=== PATIENT | male | born 1970 | race Caucasian/White ===

== ENCOUNTER 2020-02-28 08:49 | Inpatient (IN) | payer MEDICAID, OTHER ==
[~2020-02-28] VITALS: Ht 182.9 cm; Wt 220.0 kg
[~2020-02-28 08:49] MED LIST: AZIT250T PO; CYCL-1 PO; MYCOL30CR TP
[2020-02-28] MEDS ORDERED: normal saline 1000ML IV soln IV ONE (09:10)
[2020-02-28 09:50] LABS: EOSINOPHILS % (AUTO) 0 % (0-6)
[2020-02-28 09:51] LABS: BASOPHILS % (AUTO) 0.2 % (0-1); LYMPHOCYTES # (AUTO) 1.1 X10'3 (1.1-4.8); LYMPHOCYTES % (AUTO) 6.5 % (21-51); MEAN CORPUSCULAR HEMOGLOBIN 31.2 PG (27.0-31.0); MEAN CORPUSCULAR HGB CONC 34.1 g/dL (33.0-36.5); MEAN CORPUSCULAR VOLUME 91.4 FL (78-98); MEAN PLATELET VOLUME 8.9 FL (7.4-10.4); MONOCYTES # (AUTO) 1.5 X10'3 (0-0.9); MONOCYTES % (AUTO) 9.2 % (2-12); NEUTROPHILS # (AUTO) 13.9 X10'3 (1.8-7.7); NEUTROPHILS % (AUTO) 84.1 % (42-75); PLATELET COUNT 228 X10'3 (140-440); RED BLOOD COUNT 5.14 X10'6 (4.70-6.10); RED CELL DISTRIBUTION WIDTH 13.5 % (11.5-14.5); WHITE BLOOD COUNT 16.5 X10'3 (4.5-11.0)
[2020-02-28 09:52] LABS: PARTIAL THROMBOPLASTIN TIME 32 SECONDS (22-32)
[2020-02-28 09:54] LABS: CLARITY,URINE CLEAR (Clear); COLOR,URINE YELLOW (Yellow); GLUCOSE, URINE NEGATIVE (Neg); KETONES,URINE NEGATIVE (Neg); LEUKOCYTE ESTERASE ,URINE NEGATIVE (Neg); NITRITES, URINE NEGATIVE (Neg); OCCULT BLOOD,URINE TRACE-LYSED (Neg); PROTEIN,URINE 30 mg/dl (Neg)
[2020-02-28 10:00] LABS: UA COLLECTION TYPE CLN CATCH MIDSTREAM
[2020-02-28 10:02] LABS: BACTERIA,URINE NONE SEEN /HPF (Neg); MUCUS STRANDS FEW /LPF (Neg); RBC,URINE 0-2 /HPF (0-2); SQUAMOUS EPITHELIAL CELL,UR NONE SEEN /LPF (FEW); WBC,URINE 0-4 /HPF (0-4)
[2020-02-28 10:07] LABS: ALANINE AMINOTRANSFERASE 69 U/L (12-78); ALBUMIN 3.4 G/DL (3.4-5.0); ALBUMIN/GLOBULIN RATIO 0.7 (1.1-1.5); ALKALINE PHOSPHATASE 117 IU/L (46-116); ANION GAP 8 (8-16); ASPARTATE AMINO TRANSFERASE 64 U/L (10-37); BLOOD UREA NITROGEN 9 MG/DL (7-18); BUN/CREATININE RATIO 6.7 (5.4-32.0); CALCIUM 9.4 MG/DL (8.5-10.1); CHLORIDE 96 MMOL/L (99-107); CREATININE 1.35 MG/DL (0.60-1.10); GLUCOSE 145 MG/DL (70-104); MAGNESIUM 1.8 MG/DL (1.5-2.4); POTASSIUM 3.9 MMOL/L (3.5-5.1); SODIUM 132 MMOL/L (135-145); TOTAL CARBON DIOXIDE 28.5 MMOL/L (24-32); eGFR 56 ML/MIN
--- NOTE | 2020-02-28 10:12 | NUR ---
Lactic result still pending.
[2020-02-28] MEDS ORDERED: vancomycin/NS 1 GM ADD-VANTAGE 250 ML IV ONE (10:30)
[2020-02-28] MEDS ORDERED: CefTRIAXone/D5W-Rocephin 1gm 50 ML IV ONE (10:30)
[2020-02-28] MEDS ORDERED: magnesium hydroxide 30ml (MOM) UD suspension PO PRN (10:50)
[2020-02-28] MEDS ORDERED: acetaminophen 325mg tablet PO PRN ×2 (10:50)
[2020-02-28] MEDS ORDERED: ondansetron/PF 4mg/2ml inj IV PRN (10:50)
[2020-02-28] MEDS ORDERED: HYDROcodone/acetaminophen 5mg/325mg tablet PO PRN (10:50)
[2020-02-28] MEDS ORDERED: magnesium 2GM in 50ml NS 50 ML IV PRN (10:50)
[2020-02-28] MEDS ORDERED: mag hydrox/Alum hydrox/simeth 30ml oral suspension PO PRN (10:50)
[2020-02-28] MEDS ORDERED: potassium Cl 20 mEq SR tablet PO PRN (10:50)
[2020-02-28] MEDS ORDERED: magnesium 4gm in 100ml NS 100 ML IV PRN (10:50)
[2020-02-28] MEDS ORDERED: potassium CL 10mEq/100ml bag 100 ML IV PRN ×2 (10:50)
[2020-02-28] MEDS ORDERED: nicotine 14mg patch - 24hr TD ONE (11:20)
[2020-02-28] MEDS ORDERED: NO HOME MEDS (11:24)
[2020-02-28] MEDS: normal saline 1000ml 1,000 ML IV SCH ×2 (12:21→20:46)
--- NOTE | 2020-02-28 13:45 | NUR ---
Patient in room [facility]. I have received report from Mc KOO and had the opportunity to ask questions and assume patient care.
[2020-02-28 14:08] VITALS: BP 139/73
--- NOTE | 2020-02-28 18:10 | NUR ---
Problems reprioritized. Patient report given, questions answered & plan of care reviewed with Miguelina KOO.
[2020-02-28 18:15] VITALS: BP 144/88
--- NOTE | 2020-02-28 18:25 | NUR ---
Patient in room [facility]. I have received report from HAYES Pop and had the opportunity to ask questions and assume patient care.
[2020-02-28] MEDS: K and/or MAG REPLACEMENT MC SCH (18:37)
[2020-02-28] MEDS: HYDROcodone/acetaminophen 10/325mg tab PO PRN (19:35)
[2020-02-28] MEDS: VANCOmycin 1250MG/NS 250ml Bag 250 ML IV SCH (22:08)
[2020-02-29] VITALS: BP 137/90
[2020-02-29] MEDS: HYDROcodone/acetaminophen 10/325mg tab PO PRN ×2 (04:37→09:13)
[2020-02-29 04:55] LABS: BASOPHILS % (AUTO) 0.2 % (0-1); EOSINOPHILS % (AUTO) 0.2 % (0-6); HEMATOCRIT 42.2 % (42.0-52.0); HEMOGLOBIN 13.9 g/dl (14.0-17.9); LYMPHOCYTES # (AUTO) 1.2 X10'3 (1.1-4.8); LYMPHOCYTES % (AUTO) 9.8 % (21-51); MEAN CORPUSCULAR HEMOGLOBIN 30.5 PG (27.0-31.0); MEAN CORPUSCULAR VOLUME 92.3 FL (78-98); MEAN PLATELET VOLUME 8.5 FL (7.4-10.4); MONOCYTES % (AUTO) 8.6 % (2-12); NEUTROPHILS # (AUTO) 9.8 X10'3 (1.8-7.7); NEUTROPHILS % (AUTO) 81.2 % (42-75); PLATELET COUNT 164 X10'3 (140-440); RED BLOOD COUNT 4.57 X10'6 (4.70-6.10); RED CELL DISTRIBUTION WIDTH 13.4 % (11.5-14.5); WHITE BLOOD COUNT 12.1 X10'3 (4.5-11.0)
[2020-02-29 05:09] LABS: ALANINE AMINOTRANSFERASE 49 U/L (12-78); ALBUMIN 2.6 G/DL (3.4-5.0); ALBUMIN/GLOBULIN RATIO 0.6 (1.1-1.5); ALKALINE PHOSPHATASE 102 IU/L (46-116); ANION GAP 9 (8-16); ASPARTATE AMINO TRANSFERASE 34 U/L (10-37); BILIRUBIN,TOTAL 0.5 MG/DL (0.1-1.0); BLOOD UREA NITROGEN 6 MG/DL (7-18); BUN/CREATININE RATIO 5.7 (5.4-32.0); CALCIUM 8.1 MG/DL (8.5-10.1); CHLORIDE 101 MMOL/L (99-107); CREATININE 1.06 MG/DL (0.60-1.10); GLUCOSE 105 MG/DL (70-104); MAGNESIUM 1.7 MG/DL (1.5-2.4); POTASSIUM 3.4 MMOL/L (3.5-5.1); SODIUM 134 MMOL/L (135-145); TOTAL CARBON DIOXIDE 24.5 MMOL/L (24-32); TOTAL PROTEIN 6.7 G/DL (6.4-8.2); eGFR 74 ML/MIN
--- NOTE | 2020-02-29 06:15 | NUR ---
Problems reprioritized. Patient report given, questions answered & plan of care reviewed with HAYES De La Torre.
[2020-02-29] MEDS: normal saline 1000ml 1,000 ML IV SCH ×3 (06:46→20:10)
[2020-02-29] MEDS: CefTRIAXone/D5W-Rocephin 1gm 50 ML IV SCH (07:17)
[2020-02-29] MEDS: enoxaparin 40mg/0.4ml syringe SQ SCH (07:17)
[2020-02-29] MEDS: potassium Cl 20 mEq SR tablet PO PRN ×3 (07:17→17:39)
[2020-02-29] MEDS: K and/or MAG REPLACEMENT MC SCH ×2 (07:20→18:43)
[2020-02-29 07:37] VITALS: BP 138/92
[2020-02-29] MEDS: VANCOmycin 1250MG/NS 250ml Bag 250 ML IV SCH ×2 (11:51→22:01)
[2020-02-29] MEDS: nicotine 14mg patch - 24hr TD SCH (12:56)
[2020-02-29 13:37] VITALS: BP 122/89
[2020-02-29 18:00] VITALS: BP 152/98
--- NOTE | 2020-02-29 18:15 | NUR ---
Problems reprioritized. Patient report given, questions answered & plan of care reviewed with DARRON KOO.
--- NOTE | 2020-02-29 18:41 | NUR ---
Patient in room [facility]. I have received report from HAYES De La Torre and had the opportunity to ask questions and assume patient care.
[2020-02-29] MEDS: oxyCODONE IR 5mg (immed. release) tablet PO PRN (20:07)
[2020-03-01 00:08] VITALS: BP 131/76
[2020-03-01] MEDS: oxyCODONE IR 5mg (immed. release) tablet PO PRN ×5 (03:39→22:50)
[2020-03-01 03:49] VITALS: BP 124/76
[2020-03-01 05:24] LABS: BASOPHILS % (AUTO) 0.2 % (0-1); EOSINOPHILS # (AUTO) 0.1 X10'3 (0-0.9); EOSINOPHILS % (AUTO) 0.7 % (0-6); HEMATOCRIT 37.3 % (42.0-52.0); HEMOGLOBIN 12.6 g/dl (14.0-17.9); LYMPHOCYTES # (AUTO) 1.4 X10'3 (1.1-4.8); LYMPHOCYTES % (AUTO) 15.9 % (21-51); MEAN CORPUSCULAR HGB CONC 33.9 g/dL (33.0-36.5); MEAN CORPUSCULAR VOLUME 91.4 FL (78-98); MEAN PLATELET VOLUME 8.7 FL (7.4-10.4); MONOCYTES # (AUTO) 1.1 X10'3 (0-0.9); MONOCYTES % (AUTO) 12.2 % (2-12); NEUTROPHILS # (AUTO) 6.4 X10'3 (1.8-7.7); PLATELET COUNT 204 X10'3 (140-440); RED BLOOD COUNT 4.08 X10'6 (4.70-6.10); RED CELL DISTRIBUTION WIDTH 13.4 % (11.5-14.5)
[2020-03-01 05:42] LABS: ALANINE AMINOTRANSFERASE 40 U/L (12-78); ALBUMIN 2.3 G/DL (3.4-5.0); ALBUMIN/GLOBULIN RATIO 0.6 (1.1-1.5); ALKALINE PHOSPHATASE 112 IU/L (46-116); ANION GAP 8 (8-16); ASPARTATE AMINO TRANSFERASE 25 U/L (10-37); BILIRUBIN,TOTAL 0.3 MG/DL (0.1-1.0); BLOOD UREA NITROGEN 5 MG/DL (7-18); BUN/CREATININE RATIO 4.3 (5.4-32.0); CALCIUM 8.6 MG/DL (8.5-10.1); CHLORIDE 102 MMOL/L (99-107); CREATININE 1.16 MG/DL (0.60-1.10); GLUCOSE 151 MG/DL (70-104); MAGNESIUM 1.8 MG/DL (1.5-2.4); POTASSIUM 3.4 MMOL/L (3.5-5.1); SODIUM 135 MMOL/L (135-145); TOTAL CARBON DIOXIDE 25.4 MMOL/L (24-32); TOTAL PROTEIN 6.3 G/DL (6.4-8.2); eGFR 67 ML/MIN
[2020-03-01] MEDS: normal saline 1000ml 1,000 ML IV SCH ×2 (06:07→21:19)
--- NOTE | 2020-03-01 06:35 | NUR ---
Patient in room [facility]. I have received report from HAYES ROB and had the opportunity to ask questions and assume patient care.
--- NOTE | 2020-03-01 06:45 | NUR ---
Problems reprioritized. Patient report given, questions answered & plan of care reviewed with HAYES Johnson.
[2020-03-01 07:00] VITALS: BP 136/71
[2020-03-01] MEDS: CefTRIAXone/D5W-Rocephin 1gm 50 ML IV SCH (07:17)
[2020-03-01] MEDS: nicotine 14mg patch - 24hr TD SCH (07:18)
[2020-03-01] MEDS: enoxaparin 40mg/0.4ml syringe SQ SCH (07:19)
[2020-03-01] MEDS: potassium Cl 20 mEq SR tablet PO PRN ×3 (07:20→19:01)
[2020-03-01] MEDS: K and/or MAG REPLACEMENT MC SCH ×2 (08:00→19:01)
[2020-03-01] MEDS ORDERED: VANCOMYCIN LEVEL IV ONE (10:30)
[2020-03-01 11:00] VITALS: BP 117/74
[2020-03-01] MEDS: VANCOmycin 1250MG/NS 250ml Bag 250 ML IV SCH ×2 (11:06→19:01)
--- NOTE | 2020-03-01 18:18 | NUR ---
Patient in room [facility]. I have received report from Elizabeth KOO and had the opportunity to ask questions and assume patient care.
[2020-03-01 18:30] VITALS: BP 158/90
--- NOTE | 2020-03-01 18:53 | NUR ---
Problems reprioritized. Patient report given, questions answered & plan of care reviewed with HAYES Cespedes.
--- NOTE | 2020-03-01 22:45 | NUR ---
Attempt #2 at offering the NG. Explained benefits of it and patient is still refusing at this time. Addendum: 03/02/20 at 0003 by Maddison Voss RN Wrong chart.
[2020-03-02] VITALS: BP 118/73
[2020-03-02] MEDS: VANCOmycin 1250MG/NS 250ml Bag 250 ML IV SCH (02:35)
--- NOTE | 2020-03-02 06:19 | NUR ---
Problems reprioritized. Patient report given, questions answered & plan of care reviewed with Elizabeth KOO.
--- NOTE | 2020-03-02 06:20 | NUR ---
Patient in room [facility]. I have received report from HAYES Huntley and had the opportunity to ask questions and assume patient care.
[2020-03-02 06:26] LABS: BASOPHILS % (AUTO) 0.6 % (0-1); EOSINOPHILS # (AUTO) 0.1 X10'3 (0-0.9); EOSINOPHILS % (AUTO) 1.8 % (0-6); HEMATOCRIT 39.1 % (42.0-52.0); HEMOGLOBIN 13.4 g/dl (14.0-17.9); LYMPHOCYTES # (AUTO) 1.7 X10'3 (1.1-4.8); LYMPHOCYTES % (AUTO) 21.5 % (21-51); MEAN CORPUSCULAR HEMOGLOBIN 31.3 PG (27.0-31.0); MEAN CORPUSCULAR HGB CONC 34.4 g/dL (33.0-36.5); MEAN PLATELET VOLUME 8.3 FL (7.4-10.4); MONOCYTES # (AUTO) 0.9 X10'3 (0-0.9); MONOCYTES % (AUTO) 11.5 % (2-12); NEUTROPHILS # (AUTO) 5.2 X10'3 (1.8-7.7); NEUTROPHILS % (AUTO) 64.6 % (42-75); PLATELET COUNT 231 X10'3 (140-440); RED CELL DISTRIBUTION WIDTH 13.6 % (11.5-14.5); WHITE BLOOD COUNT 8.1 X10'3 (4.5-11.0)
[2020-03-02 06:58] LABS: ALANINE AMINOTRANSFERASE 43 U/L (12-78); ALBUMIN 2.5 G/DL (3.4-5.0); ALBUMIN/GLOBULIN RATIO 0.6 (1.1-1.5); ALKALINE PHOSPHATASE 139 IU/L (46-116); ANION GAP 9 (8-16); ASPARTATE AMINO TRANSFERASE 30 U/L (10-37); BILIRUBIN,TOTAL 0.4 MG/DL (0.1-1.0); BLOOD UREA NITROGEN 7 MG/DL (7-18); BUN/CREATININE RATIO 6.4 (5.4-32.0); CALCIUM 8.7 MG/DL (8.5-10.1); CHLORIDE 101 MMOL/L (99-107); GLUCOSE 155 MG/DL (70-104); MAGNESIUM 2.1 MG/DL (1.5-2.4); POTASSIUM 3.8 MMOL/L (3.5-5.1); SODIUM 134 MMOL/L (135-145); TOTAL CARBON DIOXIDE 24.5 MMOL/L (24-32); TOTAL PROTEIN 6.9 G/DL (6.4-8.2); eGFR 71 ML/MIN
[2020-03-02 07:00] VITALS: BP 143/98
[2020-03-02] MEDS: enoxaparin 40mg/0.4ml syringe SQ SCH (07:20)
[2020-03-02] MEDS: nicotine 14mg patch - 24hr TD SCH (07:20)
[2020-03-02] MEDS: CefTRIAXone/D5W-Rocephin 1gm 50 ML IV SCH (07:21)
[2020-03-02] MEDS: K and/or MAG REPLACEMENT MC SCH ×2 (07:23→20:00)
[2020-03-02] MEDS: oxyCODONE IR 5mg (immed. release) tablet PO PRN ×3 (07:25→20:01)
[2020-03-02] MEDS: normal saline 1000ml 1,000 ML IV SCH ×3 (08:46→20:06)
[2020-03-02] MEDS ORDERED: VANCOMYCIN LEVEL IV ONE (10:30)
[2020-03-02] MEDS ORDERED: VANCOMYCIN 1,500MG inj. 1,500 MG in normal saline 500ml IV soln 500 ML IV SCH (12:10)
[2020-03-02 12:31] VITALS: BP 123/83
[2020-03-02] MEDS: clindamycin 600mg/D5W 50ml 50 ML IV SCH ×2 (14:43→20:02)
--- NOTE | 2020-03-02 18:13 | NUR ---
Problems reprioritized. Patient report given, questions answered & plan of care reviewed with HAYES Bond.
--- NOTE | 2020-03-02 18:30 | NUR ---
Patient in room [facility]. I have received report from JOSE KOO and had the opportunity to ask questions and assume patient care.
[2020-03-02 19:36] VITALS: BP 114/72
[2020-03-02] MEDS: lactobacillus rhamnosus 10,000 MMU CELLS/CAPSULE PO SCH (20:01)
[2020-03-03] VITALS: BP 109/55
[2020-03-03] MEDS: oxyCODONE IR 5mg (immed. release) tablet PO PRN ×2 (00:27→07:47)
[2020-03-03] MEDS: clindamycin 600mg/D5W 50ml 50 ML IV SCH ×2 (02:21→07:47)
[2020-03-03] MEDS: normal saline 1000ml 1,000 ML IV SCH (05:16)
[2020-03-03 06:01] LABS: BASOPHILS # (AUTO) 0.1 X10'3 (0-0.2); BASOPHILS % (AUTO) 0.7 % (0-1); EOSINOPHILS # (AUTO) 0.3 X10'3 (0-0.9); EOSINOPHILS % (AUTO) 2.7 % (0-6); HEMATOCRIT 38.7 % (42.0-52.0); HEMOGLOBIN 13.3 g/dl (14.0-17.9); LYMPHOCYTES % (AUTO) 21.1 % (21-51); MEAN CORPUSCULAR HEMOGLOBIN 31.2 PG (27.0-31.0); MEAN CORPUSCULAR HGB CONC 34.3 g/dL (33.0-36.5); MEAN CORPUSCULAR VOLUME 91.1 FL (78-98); MEAN PLATELET VOLUME 8.6 FL (7.4-10.4); MONOCYTES % (AUTO) 11.1 % (2-12); NEUTROPHILS # (AUTO) 6.1 X10'3 (1.8-7.7); NEUTROPHILS % (AUTO) 64.4 % (42-75); PLATELET COUNT 292 X10'3 (140-440); RED BLOOD COUNT 4.25 X10'6 (4.70-6.10); RED CELL DISTRIBUTION WIDTH 13.5 % (11.5-14.5); WHITE BLOOD COUNT 9.4 X10'3 (4.5-11.0)
[2020-03-03 06:23] LABS: ALANINE AMINOTRANSFERASE 48 U/L (12-78); ALBUMIN 2.5 G/DL (3.4-5.0); ALBUMIN/GLOBULIN RATIO 0.6 (1.1-1.5); ALKALINE PHOSPHATASE 139 IU/L (46-116); ANION GAP 10 (8-16); ASPARTATE AMINO TRANSFERASE 35 U/L (10-37); BILIRUBIN,TOTAL 0.4 MG/DL (0.1-1.0); BLOOD UREA NITROGEN 9 MG/DL (7-18); BUN/CREATININE RATIO 8.7 (5.4-32.0); CALCIUM 8.5 MG/DL (8.5-10.1); CHLORIDE 103 MMOL/L (99-107); CREATININE 1.04 MG/DL (0.60-1.10); GLUCOSE 111 MG/DL (70-104); SODIUM 139 MMOL/L (135-145); TOTAL PROTEIN 6.8 G/DL (6.4-8.2); eGFR 76 ML/MIN
--- NOTE | 2020-03-03 06:24 | NUR ---
Problems reprioritized. Patient report given, questions answered & plan of care reviewed with BIANCA KOO.
--- NOTE | 2020-03-03 06:30 | NUR ---
Patient in room [facility]. I have received report from Ronda KOO and had the opportunity to ask questions and assume patient care.
[2020-03-03 07:24] VITALS: BP 134/86
[2020-03-03] MEDS: K and/or MAG REPLACEMENT MC SCH (07:45)
[2020-03-03] MEDS: lactobacillus rhamnosus 10,000 MMU CELLS/CAPSULE PO SCH (07:47)
[2020-03-03] MEDS: nicotine 14mg patch - 24hr TD SCH (07:48)
[2020-03-03] MEDS: enoxaparin 40mg/0.4ml syringe SQ SCH (07:54)
[2020-03-03 11:25] VITALS: BP 113/77
[2020-03-03] MEDS ORDERED: VANCOMYCIN LEVEL IV ONE (11:30)
[2020-03-03] MEDS ORDERED: CLIN-5 PO (14:25)
[2020-03-03] MEDS ORDERED: NAPR-996 PO (14:25)
[2020-03-03] MEDS ORDERED: NICO-631 TD (14:25)
--- NOTE | 2020-03-03 15:10 | NUR ---
Patient discharged with all belongings. W/C to front lobby. Discharge instructions gone over with patient and signed. Patient was given the opportunity to ask questions.
== END 2020-03-03 15:10 | disposition home or self-care (01) | DRG 720 ==
LOC: ER 08:49 → ED HOLD 10:46 → SUR 3N 13:56
PROVIDERS: ADMIT Family Medicine; ATTEND Family Medicine
DX: A41.9 Sepsis, unspecified organism (principal); L03.115 Cellulitis of right lower limb; E87.1 Hypo-osmolality and hyponatremia; F17.210 Nicotine dependence, cigarettes, uncomplicated; S81.801A Unspecified open wound, right lower leg, initial encounter; G89.29 Other chronic pain; E86.0 Dehydration; Z60.2 Problems related to living alone; N17.0 Acute kidney failure with tubular necrosis; Z82.49 Family history of ischemic heart disease and other diseases of the circulatory system; Z88.6 Allergy status to analgesic agent; Z88.8 Allergy status to other drugs, medicaments and biological substances; Z79.899 Other long term (current) drug therapy; Z71.6 Tobacco abuse counseling
CPT/HCPCS: 36415; 71045; 73590; 80053; 80202; 81001; 83605; 83735; 84145; 85025; 85610; 85730; 87040; 87081; 93005; 97110; 97112; 97116; 97161; 97530; 99285; G0378; J0696; J1650; J3370; J3490; J7030; J7040

== ENCOUNTER 2021-04-23 12:08 | Emergency (ER) | payer MEDICAID, OTHER ==
[~2021-04-23] VITALS: Ht 182.9 cm; Wt 120.0 kg
[~2021-04-23 12:08] MED LIST changes: -AZIT250T PO; +CLIN-91 PO; -CYCL-1 PO; -MYCOL30CR TP; +NAPR-996 PO; +NICO-631 TD
[2021-04-23 12:52] VITALS: BP 124/96
== END 2021-04-23 14:21 | disposition home or self-care (01) ==
LOC: ER 12:09
DX: U07.1 COVID-19 (principal); R50.9 Fever, unspecified; R21 Rash and other nonspecific skin eruption; G89.29 Other chronic pain; F17.200 Nicotine dependence, unspecified, uncomplicated; F12.90 Cannabis use, unspecified, uncomplicated; Z72.89 Other problems related to lifestyle; Z88.8 Allergy status to other drugs, medicaments and biological substances; Z79.2 Long term (current) use of antibiotics; Z79.899 Other long term (current) drug therapy
CPT/HCPCS: 36415; 99283; U0003